=== PATIENT | male | born 1970 | race African-American/Black ===

== ENCOUNTER 2019-01-07 04:08 | Emergency (ER) | payer OTHER ==
[~2019-01-07] VITALS: Ht 172.7 cm; Wt 71.7 kg
[2019-01-07] MEDS ORDERED: NOHOMEMEDICATIONS (04:39)
[2019-01-07] MEDS ORDERED: PENICILLIN V P500 MG PO (05:15)
[2019-01-07] MEDS ORDERED: ANUSOL-HC25 MG RECTAL (05:15)
[2019-01-07] MEDS ORDERED: CLEOCIN HCL150 MG PO (05:26)
[2019-01-07 05:34] VITALS: BP 114/75
== END 2019-01-07 05:35 | disposition home or self-care (01) ==
LOC: ER
DX: K06.9 Disorder of gingiva and edentulous alveolar ridge, unspecified (principal); K05.6 Periodontal disease, unspecified; K64.4 Residual hemorrhoidal skin tags; F17.210 Nicotine dependence, cigarettes, uncomplicated; Z88.0 Allergy status to penicillin